=== PATIENT | male | born 1930 | race Caucasian/White ===

== ENCOUNTER 2019-09-19 19:20 | Emergency (ER) | payer MEDICARE, BC ==
[~2019-09-19] VITALS: Ht 182.9 cm; Wt 95.3 kg
--- NOTE | 2019-09-19 19:26 | NUR ---
PT ANTHONY C/O GLF, PER EMS PT FOUND ON THE GROUND BY , PT AWAKE, ALERT, -SOB, NAD NOTED, VSS ,PENDING MD BAEZ
[2019-09-19] MEDS ORDERED: IV NS 0.9% 500 ML BAG IV ONE (20:00)
[2019-09-19 20:18] LABS: BASOPHILS % (AUTO) 0.7 % (0.0-2.0); EOSINOPHILS % (AUTO) 0.8 % (0.0-6.0); HEMATOCRIT 34 % (39-51); HEMOGLOBIN 11.6 g/dL (13.5-17.5); LYMPHOCYTES # (AUTO) 1.3 /CMM (0.8-4.8); MEAN CORPUSCULAR HGB CONC 34 g/dl (31.0-36.0); MEAN CORPUSCULAR VOLUME 101 fL (80-96); MONOCYTES # (AUTO) 0.7 /CMM (0.1-1.30); NEUTROPHILS # (AUTO) 2.7 /CMM (1.8-8.9); NEUTROPHILS % (AUTO) 57.5 % (43.0-81.0); PLATELET COUNT (AUTO) 250 /CMM (150-450); RED BLOOD CELL COUNT(AUTO) 3.37 MIL/uL (4.5-6.0); WHITE BLOOD COUNT (AUTO) 4.8 K/uL (4.3-11.0)
[2019-09-19 20:38] LABS: CREATININE 0.8 mg/dL (0.6-1.3); POTASSIUM 4.1 mmol/L (3.5-5.1)
[2019-09-19 21:00] VITALS: BP 100/65
--- NOTE | 2019-09-19 21:06 | NUR ---
Patient discharged to home in stable condition. Written and verbal after care instructions given. Patient verbalizes understanding of instruction. IV removed. Catheter intact and site benign. Pressure and 4x4 applied to site. No bleeding noted.
== END 2019-09-19 21:15 | disposition home or self-care (01) ==
LOC: ER 19:26
DX: S50.811A Abrasion of right forearm, initial encounter (principal); S09.8XXA Other specified injuries of head, initial encounter; I10 Essential (primary) hypertension; F10.10 Alcohol abuse, uncomplicated; Y90.9 Presence of alcohol in blood, level not specified; W18.09XA Striking against other object with subsequent fall, initial encounter; Y93.89 Activity, other specified; Y92.89 Other specified places as the place of occurrence of the external cause; Y99.8 Other external cause status
CPT/HCPCS: 36415; 70450; 80048; 85025; 99284; J7040